=== PATIENT | male | born 1965 | race Hispanic/Latino ===

== ENCOUNTER 2022-07-11 08:25 | Outpatient (CLI) | payer OTHER | END 2022-07-11 08:26 | disposition home or self-care (01) | LOC: ULT 08:25 | PROVIDERS: ATTEND Internal Medicine Gastroenterology | DX: Z12.11 Encounter for screening for malignant neoplasm of colon (principal); R14.0 Abdominal distension (gaseous) | CPT/HCPCS: 76700 ==

== ENCOUNTER 2025-01-24 07:30 | Outpatient (CLI) | payer OTHER | END 2025-01-24 07:31 | disposition home or self-care (01) | LOC: MRI 07:30 | PROVIDERS: ATTEND Family Medicine | DX: H53.40 Unspecified visual field defects (principal); R90.82 White matter disease, unspecified; Z82.49 Family history of ischemic heart disease and other diseases of the circulatory system | CPT/HCPCS: 70544; 70553; 76376 ==